=== PATIENT | female | born 1940 | race Caucasian/White ===

== ENCOUNTER 2017-10-01 17:34 | Observation (INO) | payer MEDICARE ==
[2017-10-01 18:07] LABS: #Eosinphils 0.1 thou/uL (0.0-0.7); #Lymphocytes 1.1 thou/uL (1.20-3.40); #Monocytes 0.6 thou/uL (0.11-0.59); #Neutrophils 4.2 thou/uL (1.40-6.50); %Basophils 0.7 % (0.0-1.0); %Eosinophils 1.6 % (0.0-10.0); %Lymphocytes 18.6 % (21.0-51.0); %Neutrophils 69.1 % (42.0-75.0); Hemoglobin 13.8 g/dL (12.0-16.0); Mean Corpuscular HGB CONC 33.4 g/dL (32.0-36.0); Mean Corpuscular Hemoglobin 29.5 pg (27.0-31.0); Mean Corpuscular Volume 88.4 fl (81.0-99.0); Platelet Count 174 thou/uL (130-400); RBC Distribution Width 11.1 % (11.5-14.5); Red Blood Cell (RBC) Count 4.67 mill/uL (4.20-5.40)
[2017-10-01 18:27] LABS: ALT (SGPT) 16 U/L (8-55); AST (SGOT) 24 U/L (5-34); Albumin 4.1 g/dL (3.4-4.8); Alkaline Phosphatase 74 U/L (40-150); Anion Gap 12 mmol/L (10-20); BUN (Urea Nitrogen) 7 mg/dL (9.8-20.1); Bilirubin, Total 0.3 mg/dL (0.2-1.2); CK (CPK) 86 U/L (29-168); Calc. Creatinine Clearance 0 mL/min (70-130); Calcium 9.9 mg/dL (7.8-10.44); Carbon Dioxide 27 mmol/L (23-31); Chloride 102 mmol/L (98-107); Estimated GFR-MDRD 78; Globulin 2.7 g/dL (2.4-3.5); Glucose 99 mg/dL (83-110); Lipase 14 U/L (8-78); Potassium 4.4 mmol/L (3.5-5.1); Protein, Total 6.8 g/dL (6.0-8.3); Sodium 137 mmol/L (136-145)
[2017-10-01 18:31] LABS: Troponin I Less than 0.010 ng/mL (< 0.028)
--- NOTE | 2017-10-01 18:42 | RAD ---
EXAM: ONE VIEW CHEST 10/01/17 COMPARISON: 06/05/14 HISTORY: Chest pain. FINDINGS: Normal cardiac silhouette. Stable hiatal hernia. Stable calcified granuloma in the right lung. Stable hyperinflation. No masses or consolidation. No pneumothorax or osseous abnormalities. Previous shoulder surgery. IMPRESSION: No acute cardiopulmonary process. POS: [facility]
[2017-10-01] MEDS ORDERED: Nitroglycerin 2% Ointment 1 INCH/1 GM Packet ONE (18:57)
[2017-10-01] MEDS ORDERED: Nitroglycerin 0.4 MG TAB (25 Tab Bottle) PO PRN (20:29)
[2017-10-01] MEDS ORDERED: PROVENTIL INHALER 6.7 G (200 INHALATIONS) INH PRN (20:29)
[2017-10-01] MEDS ORDERED: Acetaminophen 325 MG TAB PO PRN (20:29)
[2017-10-01] MEDS ORDERED: Sodium Chloride 0.9% 1,000 ML IV SCH (20:30)
[2017-10-01 21:35] LABS: Troponin I Less than 0.010 ng/mL (< 0.028)
[2017-10-01] MEDS ORDERED: Sodium Chloride 0.65% Nasal 44 ML BOT EA NARE PRN (21:58)
[2017-10-01 22:05] VITALS: BMI 27.5
--- NOTE | 2017-10-01 22:13 | HP ---
REASON FOR ADMISSION: Chest pain. HISTORY OF PRESENTING ILLNESS: The patient comes in with complaints of chest pain, which started yenni und 2:00 p.m. She was sitting in an easy chair and watching TV when this happened. The chest pain w as retrosternal with some radiation to right side. Has cough with expectoration of clear sputum. No complaints of fever as such, but had a temperature of 99.5 degrees on arrival here. Patient's chest pain lasted 1 minute and was coming off and on every 15 minutes. At 3 p.m., this got worse when she finally decided to come here. The patient also gives history of having stomach upset and had gone t o see Dr. David, her primary care physician and had a CAT scan done [address] scan apparently did not show any abnormalities and patient was put on gluten free diet from then on. PAST MEDICAL AND SURGICAL HISTORY: History of prior cardiac catheterization done with mild disease i n 2013, by Dr. Montalvo; hypertension; GERD; dyslipidemia; asthma, which is fairly well controlled an d she rarely takes inhaler on a daily basis, it is mostly once a week; bladder repair; right knee rep lacement; right shoulder surgery and hysterectomy. CURRENT MEDICATIONS: Patient takes metoprolol 50 mg twice daily, aspirin on a p.r.n. basis, omeprazo le 20 mg daily, Livalo 1 mg daily. She also takes a new cholesterol pill, which she cannot recall. ALLERGIES: CIPROFLOXACIN and DARVON. PERSONAL HISTORY: Does not abuse alcohol or drugs. No history of smoking. FAMILY HISTORY: Mom in her 80s. She has had history of osteoarthritis. Father was killed in [place] War [place]. He must have been in the mid 20s. REVIEW OF SYSTEMS: The following complete review of systems was negative, unless otherwise mentioned in the HPI or below: Constitutional: Weight loss or gain, ability to conduct usual activities. Skin: Rash, itching. Eyes: Double vision, pain. ENT/Mouth: Nose bleeding, neck stiffness, pain, tenderness. Cardiovascular: Palpitations, dyspnea on exertion, orthopnea. Respiratory: Shortness of breath, wheezing, cough, hemoptysis, fever or night sweats. Gastrointestinal: Poor appetite, abdominal pain, heartburn, nausea, vomiting, constipation, or diarr hea. Genitourinary: Urgency, frequency, dysuria, nocturia. Musculoskeletal: Pain, swelling. Neurologic/Psychiatric: Anxiety, depression. Allergy/Immunologic: Skin rash, bleeding tendency. PHYSICAL EXAMINATION: GENERAL: The patient is a 77-year-old female who is currently not in any acute distress. No chest p ain at present. VITAL SIGNS: Blood pressure on arrival 170/80, pulse 70 per minute, respiratory rate 18 per minute, temperature 99.5 degrees Fahrenheit, saturating 95% on room air. NECK: Supple. No elevated JVD. HEENT: Eyes; extraocular muscles intact. Pupils are reacting to light. Oral cavity mucous membrane s are moist. No exudates or congestion. CARDIOVASCULAR SYSTEM: S1, S2 heard. Regular rhythm. RESPIRATORY SYSTEM: Air entry 1+ bilateral. Scattered rhonchi plus no wheezes or rales. ABDOMEN: Soft, bowel sounds heard. No tenderness, rigidity or guarding. EXTREMITIES: No peripheral edema or calf tenderness. VASCULAR SYSTEM: Peripheral pulses 1+ bilateral. No ischemic ulcerations or gangrene. CENTRAL NERVOUS SYSTEM: No gross focal deficits seen. Patient is alert, awake and oriented well. PSYCHIATRIC SYSTEM: The patient's mood is euthymic. No hallucinations or delusions. LABORATORY AND X-RAY FINDINGS: EKG done shows normal sinus rhythm at 69 beats per minute. A prior c ardiac cath done on 06/06/2014 shows left main with 30% stenosis, LAD with 30% stenosis in the ramus, RCA had 20% proximal stenosis then. White count of 6, hemoglobin and hematocrit 13 and 41, platelet count 174 with 69% neutrophils and MCV is 88. Electrolytes are stable. BUN 7, creatinine 0.7, one set of cardiac enzymes are negative. Albumin is 4.1. Chest x-ray done shows no acute cardiopulmonar y abnormalities. CLINICAL IMPRESSION AND PLAN: The patient will be under observation on telemetry for chest pain, whi ch appears to be atypical. We will obtain two more sets of cardiac enzymes and a nuclear stress test in the morning. We will continue her aspirin, Lopressor, Crestor as before. She will be on albuter ol inhaler q.4 hourly p.r.n. We will obtain a flu test as well. Her temperature was 99.5 on arrival here. She has taken her flu shot 2 weeks back.
[2017-10-01] MEDS: Metoprolol Tartrate 50 MG TAB PO SCH (22:27)
[2017-10-01] MEDS: Famotidine 20 MG TAB PO SCH (22:28)
[2017-10-02 00:12] LABS: Troponin I Less than 0.010 ng/mL (< 0.028)
[2017-10-02 06:03] LABS: #Eosinphils 0.1 thou/uL (0.0-0.7); #Lymphocytes 1.2 thou/uL (1.20-3.40); #Monocytes 0.7 thou/uL (0.11-0.59); #Neutrophils 2.7 thou/uL (1.40-6.50); %Basophils 0.2 % (0.0-1.0); %Eosinophils 1.1 % (0.0-10.0); %Lymphocytes 26.1 % (21.0-51.0); %Monocytes 13.9 % (0.0-10.0); %Neutrophils 58.7 % (42.0-75.0); Hemoglobin 12.8 g/dL (12.0-16.0); Mean Corpuscular HGB CONC 33.1 g/dL (32.0-36.0); Mean Corpuscular Volume 87.6 fl (81.0-99.0); Mean Platelet Volume 6.6 fL (7.4-10.4); Platelet Count 142 thou/uL (130-400); RBC Distribution Width 11.2 % (11.5-14.5); White Blood Cell (WBC) Count 4.7 thou/uL (4.8-10.8)
[2017-10-02 06:31] LABS: Anion Gap 10 mmol/L (10-20); BUN (Urea Nitrogen) 6 mg/dL (9.8-20.1); Calc. Creatinine Clearance 81 mL/min (70-130); Calcium 9.6 mg/dL (7.8-10.44); Carbon Dioxide 25 mmol/L (23-31); Cardiac Risk 2.1 (Less than 4.5); Chloride 106 mmol/L (98-107); Cholesterol 130 mg/dl (< 200 Desired); Estimated GFR-MDRD 83; Glucose 100 mg/dL (83-110); HDL Cholesterol 61 mg/dL (>60 Neg Risk); LDL Cholesterol, Calculated 50 mg/dL; Potassium 4.2 mmol/L (3.5-5.1); Sodium 137 mmol/L (136-145); Triglycerides 95 mg/dL (Less than 150)
[2017-10-02] MEDS: Metoprolol Tartrate 50 MG TAB PO SCH (08:48)
[2017-10-02] MEDS: Famotidine 20 MG TAB PO SCH (08:48)
[2017-10-02] MEDS ORDERED: Rosuvastatin 10 MG TAB PO SCH (09:00)
[2017-10-02] MEDS ORDERED: Aspirin 325 MG TAB PO SCH (09:00)
[2017-10-02] MEDS ORDERED: Enoxaparin Sodium 40 MG/0.4 ML SYRINGE SC SCH (09:00)
--- NOTE | 2017-10-02 10:57 | NM ---
CARDIAC SPECT: HISTORY: A 77-year-old female with chest pain, coronary artery disease, hypertension, dyslipidemia, and asthma . TECHNIQUE: A myocardial perfusion scan was performed using the single-isotope 1-day protocol with Technetium 99m sestamibi. Ten mCi were injected intravenously for the rest exam followed by 31 mCi for the stress study. Pharmacologic stress with LexiScan was monitored and interpreted by Carolyn Fletcher nurse practitmakenna thomason. FINDINGS: Homogeneous tracer distribution is seen in the myocardial segments on stress and rest images without fixed or reversible defects. The TID ratio measures 1.5. GATED SPECT LVEF: 90%. WALL MOTION EXAM: Normal. IMPRESSION: TID ratio is 1.5. Clinical correlation is recommended. POS: [facility]
[2017-10-02 11:47] VITALS: BP 138/73; TEMP 98.3
--- NOTE | 2017-10-02 12:10 | PDOC.PN ---
- Subjective Encounter Start Date: 10/02/17 Encounter Start Time: 09:20 Subjective: no chest pain, has some wheezing and cough - Objective Resuscitation Status: Resuscitation Status FULL:Full Resuscitation MAR Reviewed: Yes Vital Signs & Weight: Vital Signs (12 hours) Temp Pulse Resp BP BP Pulse Ox 10/02/17 11:34 98.3 F 75 16 138/73 95 10/02/17 08:00 98.9 F 72 16 10/02/17 07:03 98.9 F 72 16 132/64 94 L 10/02/17 03:15 97.8 F 66 18 127/58 L 94 L Weight Admit Weight 160 lb 6.4 oz Weight 160 lb 6.4 oz I&O: 10/01/17 10/02/17 10/03/17 06:59 06:59 06:59 Intake Total 240 494 Output Total 1950 Balance -1710 494 Result Diagrams: 10/02/17 05:43 10/02/17 05:43 Phys Exam - Physical Examination HEENT: PERRLA, moist MMs Neck: no JVD, supple Respiratory: no rales, wheezing present Cardiovascular: RRR, no significant murmur Gastrointestinal: soft, non-tender, positive bowel sounds Musculoskeletal: no edema, pulses present Neurological: non-focal, moves all 4 limbs Psychiatric: A&O x 3 Dx/Plan (1) Chest pain Code(s): R07.9 - CHEST PAIN, UNSPECIFIED Status: Acute Qualifiers: Chest pain type: unspecified Qualified Code(s): R07.9 - Chest pain, unspecified (2) Asthma exacerbation Code(s): J45.901 - UNSPECIFIED ASTHMA WITH (ACUTE) EXACERBATION Status: Acute Qualifiers: Asthma severity: mild (3) CAD (coronary artery disease) Code(s): I25.10 - ATHSCL HEART DISEASE OF [place] CORONARY ARTERY W/O ANG PCTRS Status: Chronic Qualifiers: Coronary Disease-Associated Artery/Lesion type: [place] artery [place] vs. transplanted heart: [place] heart Comment: per cath in 2013, mild disease, no intervention done then (4) HTN (hypertension) Code(s): I10 - ESSENTIAL (PRIMARY) HYPERTENSION Status: Chronic Qualifiers: Hypertension type: essential hypertension Qualified Code(s): I10 - Essential (primary) hypertension (5) Dyslipidemia Code(s): E78.5 - HYPERLIPIDEMIA, UNSPECIFIED Status: Chronic - Plan stress test no reversible isch, has TID of 1.5 -: echo, cardio consult -: steroids and nebs for mild asthma flare up -: await influenza pcr, has taken her flu shot for this year -: likely dc home if cardio clears her on oral prednisone taper * . Review of Systems - Medications/Allergies Allergies/Adverse Reactions: Allergies Allergy/AdvReac Type Severity Reaction Status Date / Time ciprofloxacin [From Cipro] Allergy Verified 06/06/14 04:47 ciprofloxacin HCl Allergy Verified 06/06/14 04:47 [From Cipro] propoxyphene HCl Allergy Verified 06/06/14 04:47 [From Darvon] Medications: Current Medications Acetaminophen (Tylenol) 650 mg PO Q4H PRN PRN Reason: Headache/Fever or Pain Albuterol Sulfate (Proventil Hfa) 2 puff INH Q4H PRN PRN Reason: SOB &/or Wheezing Albuterol Sulfate (Ventolin) 2.5 mg NEB [id number] [facility] Aspirin (Aspirin) 325 mg PO DAILY [facility] Last Admin: 10/02/17 08:48 Dose: Not Given Enoxaparin Sodium (Lovenox) 40 mg SC 0900 [facility] Last Admin: 10/02/17 08:48 Dose: Not Given Famotidine (Pepcid) 20 mg PO BID [facility] Last Admin: 10/02/17 08:48 Dose: Not Given Sodium Chloride (Normal Saline 0.9%) 1,000 mls @ 50 mls/hr IV .Q20H [facility] Last Admin: 10/01/17 21:47 Dose: 1,000 mls Methylprednisolone Sodium Succinate (Solu-Medrol) 20 mg IVP Q8HR [facility] Metoprolol Tartrate (Lopressor) 50 mg PO BID [facility] Last Admin: 10/02/17 08:48 Dose: Not Given Nitroglycerin (Nitrostat) 0.4 mg PO Q5MIN PRN PRN Reason: Chest Pain Rosuvastatin Calcium (Crestor) 10 mg PO DAILY [facility] Last Admin: 10/02/17 08:49 Dose: Not Given Sodium Chloride ([place] Nasal [place] 0.65%) 0 ml EA NARE PRN PRN PRN Reason: Nasal Dryness Last Admin: 10/01/17 22:27 Dose: 1 spr
[2017-10-02] MEDS ORDERED: Albuterol Sulfate 2.5 mg/3 ml Neb NEB SCH (13:00)
--- NOTE | 2017-10-02 15:46 | CON ---
DATE OF CONSULTATION: 10/02/2017 REASON FOR CONSULTATION: Elevated TID. PRIMARY STUDIO TECHNICIAN: Dr. Oscar Montalvo. HISTORY OF PRESENT ILLNESS: Mrs. Cruz is a very pleasant 77-year-old white female who comes to the hospital for chest pain. She was watching TV and she suddenly felt the retrosternal pain radiating to the right side. She had been battling cough and cold for the last week or so and decided to come in for further evaluation. She has had a heart catheterization done back [place] [address] Montalvo, which evidenced only mild coronary artery disease. She had a pain that was coming on and off for every 15 minutes. She decided to come in. The pain was not positional. PAST MEDICAL HISTORY: 1. Mild coronary artery disease. 2. Gastroesophageal reflux disease. 3. Hypertension. 4. Hyperlipidemia. 5. Bronchial asthma. PAST SURGICAL HISTORY: 1. Bladder repair. 2. Right knee replacement. 3. Right shoulder surgery. 4. Hysterectomy. OUTPATIENT MEDICATIONS: Included, 1. Metoprolol 50 mg twice a day. 2. Aspirin p.r.n. 3. Omeprazole 20 mg a day. 4. Livalo 1 mg a day. ALLERGIES: CIPROFLOXACIN AND DARVON. SOCIAL HISTORY: No alcohol, tobacco or drugs. FAMILY HISTORY: Mother in her 80s. Father was killed in World War II. REVIEW OF SYSTEMS: A 12-point review of systems was done and is all negative unless stated in the history of present illness. PHYSICAL EXAMINATION: VITAL SIGNS: Temperature 98.3, pulse 75, respiration rate 16, satting 95% on room air, blood pressure 138/73. GENERAL: Awake, alert and oriented x3, in no distress. HEENT: Normocephalic, atraumatic. NECK: Supple. LUNGS: Clear. CARDIOVASCULAR: S1, S2. No S3, S4. No murmurs. No rubs. ABDOMEN: Soft, positive bowel sounds. EXTREMITIES: No edema. SKIN: Warm and dry. LABORATORY WORK: Reviewed. White count of 4.7, hemoglobin 12, hematocrit 38, platelet count 142. Chemistry was unremarkable. Troponin was absolutely negative x3, albumin of 4.1, triglycerides of 95. Cholesterol 130, LDL 50, HDL of 61, lipase was 14. Stress test was performed earlier today showed an EF of 90%, no evidence of reversible defects, no ischemia. TID ratio was 1.5. Echocardiogram was also reviewed, normal LV function with sigmoid shaped septum , mild LVH, but she has a very small pericardial effusion with no tamponade. ASSESSMENT AND PLAN: 1. Chest pain. 2. Small pericardial effusion likely small amount of pericarditis from her current upper respiratory infection, likely a viral infection. 3. Mild coronary artery disease. No ischemia on MPI. 4. Elevated transient ischemic dilatation. This is usually seen on patients who are small versus multivessel disease. She is small. She has had a recent heart catheterization that showed mild coronary disease, unlikely that she has multivessel disease that is severe. PLAN: 1. We will plan on putting her on colchicine and indomethacin for her pericarditis and she will follow up with Dr. Montalvo in 1 month to down titrate her medications. 2. She may be discharged home today from the cardiac standpoint. Thank you for letting us to participate in the care of your patient. We will sign off. Please call us if any questions. IVONE
[2017-10-02] MEDS ORDERED: Regadenoson 0.4 MG/5 ML SYRINGE ONE (16:38)
[2017-10-02] MEDS ORDERED: Indomethacin 25 mg Capsule PO SCH (21:00)
[2017-10-02] MEDS ORDERED: Colchicine 0.6 MG TAB PO SCH (21:00)
--- NOTE | 2017-10-03 14:53 | DIS ---
DATE OF ADMISSION: 10/01/2017 DATE OF DISCHARGE: 10/02/2017 DISCHARGE DISPOSITION: To home. PRIMARY DISCHARGE DIAGNOSES: Chest pain, small amount of pericardial effusion. SECONDARY DISCHARGE DIAGNOSES: Mild coronary artery disease, dyslipidemia, mild asthma exacerbation, hypertension. PROCEDURES DONE DURING HOSPITALIZATION: Echo with 2D Doppler showed EF of 60%-65%, grade 1/3 diastol ic dysfunction, small pericardial effusion without tamponade. No regional wall motion abnormalities were seen. Chest x-ray done showed no acute cardiopulmonary process. Nuclear stress test done showe d EF of 90% with normal wall motion. There were no reversible or fixed defects seen. TID was 1.5. Viral PCR was negative. Hemoglobin and hematocrit 12 and 38, platelet count 142, white count of 4.7. Three sets of cardiac enzymes were negative. Total cholesterol 130, triglycerides 95, LDL 50, HDL 61, and lipase 14. DISCHARGE MEDICATIONS: Colchicine 0.6 mg twice daily for 1 month, prednisone tapering dose starting at 10 mg, prednisone 10 mg twice daily to taper over the course of 8 days and discontinue, indomethac in 25 mg twice daily for 1 month, albuterol inhaler q.4 hourly p.r.n., Livalo 2 mg daily, Protonix 40 mg daily, and ezetimibe 10 mg daily. ALLERGIES: Allergic to CIPROFLOXACIN and PROPOXYPHENE. INPATIENT CONSULT: Dr. Pop for Cardiology. DISCHARGE PLAN: Patient to follow up with Dr. Montalvo in 4 weeks and primary care physician in 1 we ek. BRIEF COURSE DURING HOSPITALIZATION: The patient initially came in with complaints of chest pain. S he also had temperature of 99.5 degrees. The patient was placed under observation on telemetry and w as closely monitored. She has had 3 sets of cardiac enzymes which were negative and nuclear stress t est done showed no reversible or fixed defects. Her TID came back at 1.5. Cardiology consultation w michelle Pop was requested. She was found to have had mild pericardial effusion and was placed on colchicine and indomethacin. The patient has mild asthma exacerbation as well and was placed on ster oid taper. She is hemodynamically stable and has been cleared by Cardiology for discharge. She need s to follow up with primary care physician in 1 week. Please see a face to face documentation on [facility] for the day of discharge.
--- NOTE | 2017-11-01 14:08 | EKG ---
Test Reason : Blood Pressure : / mmHG Vent. Rate : 069 BPM Atrial Rate : 069 BPM P-R Int : 170 ms QRS Dur : 082 ms QT Int : 404 ms P-R-T Axes : 000 -09 013 degrees QTc Int : 432 ms Normal sinus rhythm Normal ECG Confirmed by HAMLET HENDERSON, HUGO ([id number]), copy editor JULI NDIAYE ([id number]) on 11/01/2017 2:07:42 PM Referred By: Confirmed By:HUGO MCNULTY MD
== END 2017-10-02 18:07 | disposition home or self-care (01) ==
LOC: ERS 17:34 → 2SW 19:58
PROVIDERS: ADMIT Internal Medicine; ATTEND Internal Medicine
DX: I31.3 Pericardial effusion (noninflammatory) (principal); I25.10 Atherosclerotic heart disease of native coronary artery without angina pectoris; E78.5 Hyperlipidemia, unspecified; I10 Essential (primary) hypertension; J45.901 Unspecified asthma with (acute) exacerbation; K21.9 Gastro-esophageal reflux disease without esophagitis; Z88.1 Allergy status to other antibiotic agents; Z88.8 Allergy status to other drugs, medicaments and biological substances; Z79.82 Long term (current) use of aspirin; Z79.899 Other long term (current) drug therapy; Z90.710 Acquired absence of both cervix and uterus; Z96.651 Presence of right artificial knee joint; Z98.890 Other specified postprocedural states
CPT/HCPCS: 71045; 78452; 80048; 80053; 80061; 82550; 82553; 83690; 84484 ×2; 85025 ×2; 87633; 93005; 93017; 93306; 94640 ×2; 94760 ×2; 96361 ×2; 96374; 99285; A9500; G0378; 36415; J2785; J2920; J7611; J7620

== ENCOUNTER 2018-06-16 10:53 | Outpatient (CLI) | payer MEDICARE ==
--- NOTE | 2018-06-16 16:47 | NM ---
THREE PHASE BONE SCAN 06/16/18 HISTORY: Hip, thigh and left knee pain. Patient states he fell in their backyard six weeks ago. Examination was performed using 30 millicuries of 99m technetium MDP. The patient has a history of placement of medial compartment prosthesis of the left knee around the a abril which would be the tibial component to this. There is some mild increased uptake. There is otherw ise a fairly normal distribution of the radiopharmaceutical. There is activity within the feet which is felt to be arthritic in nature. Bilateral renal as well as bladder activity is present. IMPRESSION: Patient is status post a medial compartment prosthesis placement of the left knee. There is some very mild increased uptake around the tibial component. Given the history of a fall, it is difficult to e xclude the possibility there is some loosening to this portion of the prosthesis or possibly some typ e of subtle fracture. I think that this is unlikely. I would recommend plain film correlation for ass essment. POS: [facility]
== END 2018-06-16 10:54 | disposition home or self-care (01) ==
LOC: NM 10:53
PROVIDERS: ATTEND Obstetrics & Gynecology
DX: M25.562 Pain in left knee (principal); Z96.652 Presence of left artificial knee joint
CPT/HCPCS: 78315; A9503

== ENCOUNTER 2023-06-09 17:38 | Inpatient (IN) | payer MEDICARE ==
[2023-06-09] MEDS ORDERED: Acetaminophen 325 MG TAB PO PRN (19:59)
[2023-06-09] MEDS ORDERED: Acetaminophen 650 MG Suppository PR PRN (19:59)
[2023-06-09] MEDS ORDERED: Ondansetron ODT 4 MG TAB PO PRN (19:59)
[2023-06-09] MEDS ORDERED: Ondansetron PF 4 MG/2 ML Vial IVP PRN (19:59)
[2023-06-09 22:19] LABS: Troponin I Less than 0.010 ng/mL (< 0.028)
[2023-06-09 22:23] LABS: Anion Gap 8 mmol/L (10-20); BUN (Urea Nitrogen) 14 mg/dL (9.8-20.1); Calc. Creatinine Clearance 0 mL/min (70-130); Calcium 8.7 mg/dL (7.8-10.44); Carbon Dioxide 29 mmol/L (23-31); Chloride 103 mmol/L (98-107); Estimated GFR 89; Glucose 141 mg/dL (83-110); Potassium 4.2 mmol/L (3.5-5.1); Sodium 136 mmol/L (136-145)
[2023-06-09] MEDS: Nitroglycerin 2% Ointment 1 INCH/1 GM Packet TOP SCH (22:24)
[2023-06-09 23:00] VITALS: BMI 24.3
[2023-06-10] MEDS: traZODone HCl 50 MG TAB PO PRN ×2 (01:01→20:20)
[2023-06-10] MEDS: Nitroglycerin 2% Ointment 1 INCH/1 GM Packet TOP SCH ×3 (05:16→20:13)
[2023-06-10 07:58] LABS: #Eosinphils 0.3 thou/uL (0.0-0.7); #Monocytes 0.4 thou/uL (0.11-0.59); #Neutrophils 2.6 thou/uL (1.40-6.50); %Basophils 0.5 % (0.0-1.0); %Eosinophils 6.3 % (0.0-10.0); %Lymphocytes 23.5 % (21.0-51.0); %Monocytes 9.8 % (0.0-10.0); %Neutrophils 59.7 % (42.0-75.0); Hematocrit 35.6 % (36.0-47.0); Hemoglobin 11.3 g/dL (12.0-16.0); Mean Corpuscular HGB CONC 31.7 g/dL (32.0-36.0); Mean Corpuscular Hemoglobin 28.3 pg (27.0-31.0); Mean Corpuscular Volume 89.2 fl (78.0-98.0); Mean Platelet Volume 9.1 fL (7.4-10.4); Platelet Count 136 10x3/uL (130-400); RBC Distribution Width 12.3 % (11.5-14.5); Red Blood Cell (RBC) Count 3.99 mill/uL (4.20-5.40); White Blood Cell (WBC) Count 4.3 10x3/uL (4.8-10.8)
[2023-06-10 08:32] LABS: Anion Gap 10 mmol/L (10-20); BUN (Urea Nitrogen) 10 mg/dL (9.8-20.1); Calc. Creatinine Clearance 80 mL/min (70-130); Calcium 8.9 mg/dL (7.8-10.44); Carbon Dioxide 26 mmol/L (23-31); Chloride 105 mmol/L (98-107); Estimated GFR 92; Glucose 79 mg/dL (83-110); Potassium 4.1 mmol/L (3.5-5.1); Sodium 137 mmol/L (136-145)
[2023-06-10] MEDS ORDERED: Non-Formulary Item 1 EACH (Budesonide-Formoterol [Symbicort 160-4.5] 160 MG/4.5 MG Aer) INH PRN (09:31)
[2023-06-10] MEDS ORDERED: diphenhydrAMINE 25 MG CAP PO PRN (09:31)
[2023-06-10] MEDS ORDERED: Albuterol 200 PUFF (6.7GM INHALER) INH PRN (09:31)
[2023-06-10] MEDS ORDERED: Mometasone 200 MCG/Formoterol 5 MCG 120 PUFF INHALER INH PRN (10:09)
[2023-06-10] MEDS ORDERED: Iopamidol 370 76% 100 ML VIAL ONE (10:40)
[2023-06-10] MEDS: traMADol HCl 50 MG TAB PO PRN ×2 (10:53→20:11)
[2023-06-10] MEDS: Aspirin Chewable 81 MG TAB PO SCH (10:54)
[2023-06-10] MEDS: cefTRIAXone\\ROCEPHIN 2 GM in Sodium Chloride 0.9% 100 ML IVPB SCH (10:54)
[2023-06-10] MEDS: Sodium Chloride 0.9% 1,000 ML IV SCH ×2 (12:43→20:13)
[2023-06-10] MEDS: Morphine 2 MG/ML VIAL SLOW IVP PRN (15:34)
[2023-06-10] MEDS ORDERED: Mag-Al 1200 mg/1200 mg/30 ML UDCUP PO PRN (15:51)
[2023-06-10] MEDS ORDERED: DULoxetine 30 MG CAP PO SCH (16:00)
[2023-06-10] MEDS ORDERED: Simvastatin 10 MG TAB PO SCH (16:00)
[2023-06-10] MEDS ORDERED: Nitrofurantoin Macrocrystal 50 MG CAP PO SCH (16:00)
[2023-06-10 16:47] LABS: Lactic Acid 0.8 mmol/L (0.5-2.2)
[2023-06-10] MEDS ORDERED: Donepezil HCl 5 MG TAB PO SCH (21:00)
[2023-06-11] MEDS: Nitroglycerin 2% Ointment 1 INCH/1 GM Packet TOP SCH (05:29)
[2023-06-11] MEDS: Sodium Chloride 0.9% 1,000 ML IV SCH ×2 (05:35→17:37)
[2023-06-11] MEDS ORDERED: DULoxetine 30 MG CAP PO SCH ×2 (09:00)
[2023-06-11] MEDS ORDERED: Pravastatin Sodium 20 MG TAB PO SCH (09:00)
[2023-06-11] MEDS ORDERED: Nitrofurantoin Monohyd/M-Cryst 100 MG CAP PO SCH (09:00)
[2023-06-11] MEDS ORDERED: Simvastatin 10 MG TAB PO SCH (09:00)
[2023-06-11] MEDS ORDERED: Non-Formulary Item 1 EACH (Nitrofurantoin Macrocrystal [Nitrofurantoin] 100 MG Capsule) PO SCH (09:00)
[2023-06-11] MEDS: cefTRIAXone\\ROCEPHIN 2 GM in Sodium Chloride 0.9% 100 ML IVPB SCH (10:57)
[2023-06-11] MEDS: Morphine 2 MG/ML VIAL SLOW IVP PRN (10:57)
[2023-06-11] MEDS: Aspirin Chewable 81 MG TAB PO SCH (10:59)
[2023-06-11 12:12] VITALS: BP 159/72; TEMP 98.5
== END 2023-06-11 18:23 | disposition home or self-care (01) | DRG 313 ==
LOC: 2SW 17:38 → OBSVTOIN 06-11 12:24
PROVIDERS: ADMIT Internal Medicine; ATTEND Internal Medicine
DX: R07.9 Chest pain, unspecified (principal); N39.0 Urinary tract infection, site not specified; I11.9 Hypertensive heart disease without heart failure; J45.909 Unspecified asthma, uncomplicated; F03.90 Unspecified dementia, unspecified severity, without behavioral disturbance, psychotic disturbance, mood disturbance, and anxiety; K21.9 Gastro-esophageal reflux disease without esophagitis; I25.10 Atherosclerotic heart disease of native coronary artery without angina pectoris; R00.0 Tachycardia, unspecified; K57.30 Diverticulosis of large intestine without perforation or abscess without bleeding; K44.9 Diaphragmatic hernia without obstruction or gangrene; E78.00 Pure hypercholesterolemia, unspecified; E66.9 Obesity, unspecified; Z88.1 Allergy status to other antibiotic agents; Z88.8 Allergy status to other drugs, medicaments and biological substances; Z79.899 Other long term (current) drug therapy; Z90.49 Acquired absence of other specified parts of digestive tract; Z98.49 Cataract extraction status, unspecified eye; Z90.710 Acquired absence of both cervix and uterus; Z98.890 Other specified postprocedural states; Z68.24 Body mass index [BMI] 24.0-24.9, adult
CPT/HCPCS: 36415; 74177; 78451; 80048; 83605; 83735; 84484; 85025; 93005; 93010; 96374; 96375; 96376; A9500; G0378; J0696; J2272; J3490; J7050; Q9967